=== PATIENT | female | born 1955 | race Caucasian/White ===

== ENCOUNTER → 2022-09-01 09:50 | Outpatient (BNVA) | payer MEDICARE, SELFPAY | PROVIDERS: Family Provider Family Medicine; PCP Family Medicine; Visit Provider Family Medicine | DX: E11.9 Type 2 diabetes mellitus without complications (principal); E03.9 Hypothyroidism, unspecified | CPT/HCPCS: 80053; 80061; 83036; 84443 ==

== ENCOUNTER 2022-09-16 14:31 | Outpatient (CLI) | payer MEDICARE, SELFPAY ==
--- NOTE | 2022-09-16 14:45 | US_ITS ---
WS: [id number] RIGHT UPPER QUADRANT ULTRASOUND HISTORY: elevated lfts COMPARISON: Gallbladder ultrasound 01/07/2016 Liver: 18.8 cm in length. Mildly enlarged liver. No mass or bile duct dilatation. Portal Vein: Normal hepatopetal flow with monophasic waveform. Gallbladder: Normally distended gallbladder with no stones or wall thickening. CBD: 0.3 cm Pancreas: Normal size pancreas. There is a hypoechoic area in the proximal body of the pancreas measu ring 6 x 9 x 6 mm. This was not present on the prior study. Otherwise negative. Right kidney: 11.8 cm in length. Normal size and echogenicity. No hydronephrosis or mass. Aorta and IVC: Unremarkable abdominal aorta and IVC. No ascites. US/US liver [id number] IMPRESSION: 1. Normal gallbladder. 2. Mild hepatic enlargement. 3. Cystic mass in the pancreatic body with measuring 6 x 9 x 6 mm. Differentia l includes cystic neoplasm, IPMN and pseudocyst. Recommend follow-up CT abdomen and pelvis with IV and oral contrast. Surveillance imaging will likely be nece ssary.
== END 2022-09-16 14:32 | disposition home or self-care (01) ==
PROVIDERS: PCP Family Medicine; Visit Provider Family Medicine
DX: R79.89 Other specified abnormal findings of blood chemistry (principal); R16.0 Hepatomegaly, not elsewhere classified
CPT/HCPCS: 76705; 83540; 86705; 86706; 86709; 86803; 87340

== ENCOUNTER 2022-10-11 11:53 | Outpatient (CLI) | payer MEDICARE, SELFPAY ==
--- NOTE | 2022-10-11 13:00 | CT_ITS ---
WS: [id number] CT ABDOMEN AND PELVIS WITH CONTRAST HISTORY: Pancreatic mass TECHNIQUE: Imaging performed of the abdomen and pelvis with IV contrast. Single phase imaging of the abdomen. Coronal and sagittal reformats are submitted. All CT scans at [facility] use at [address] one of these dose optimization techniques: automated exposure control; mA and/or kV adjustment per patient size (includes targeted exams where dose is matched to clinical indication); or iterative re construction. IV CONTRAST: Omnipaque 350; 100 mL IV. Oral contrast: Yes. DLP: 841.82 mGy.cm COMPARISON: 09/16/2022 and 01/07/2016 Lower thorax: Lung bases are clear. Heart is normal size. No hiatal hernia. Liver/biliary system: Normal size with no intrahepatic dilatation. Gallbladder: Normal. No gallstones or wall thickening. No pericholecystic fluid. Pancreas: Pancreas is normal size. Low-attenuation mass proximal body of the pancreas measures 9 mm. Hounsfield units are negative suggesting this is a fatty deposit. No additional pancreatic abnormalit y. Spleen: Normal size spleen. No mass or infarct. Granulomata. Adrenal glands: Normal. Right kidney: Normal. Left kidney: Normal. Aorta: Normal. Lymphadenopathy: None. Free fluid: None. GI tract: Normal stomach. No small bowel obstruction. Normal appendix. No colon obstruction. Abdominal wall: Fat containing umbilical hernia. Pelvis: No free fluid or adenopathy within the pelvis. Bones: L2 hemangioma. CT/CT abdomen pelvis w con* [id number] IMPRESSION: 1. Pancreatic body mass measuring 9 mm with negative Hounsfield units consiste nt with fat. Fat-containing lesions are typically benign. There is no enhancing solid component. This may be a focal lipomatosis/lipoma of the pancreas. Terat farhana also within the differential. Suggest [address] follow-up with contrast. 2. No ascites or adenopathy.
[2022-10-11] MEDS: iohexol 350 mg/mL 500 mL Btl (per mL) PO (13:37)
[2022-10-11] MEDS: iohexol 350 mg/mL 500 mL Btl (per mL) IV (13:38)
== END 2022-10-11 11:54 | disposition home or self-care (01) ==
PROVIDERS: PCP Family Medicine; Visit Provider Family Medicine
DX: K86.89 Other specified diseases of pancreas (principal); R79.89 Other specified abnormal findings of blood chemistry; E11.9 Type 2 diabetes mellitus without complications
CPT/HCPCS: 74177; Q9967

== ENCOUNTER → 2023-02-21 09:10 | Outpatient (BNVA) | payer MEDICARE, SELFPAY | PROVIDERS: PCP Family Medicine; Visit Provider Family Medicine | DX: K86.89 Other specified diseases of pancreas (principal); R79.89 Other specified abnormal findings of blood chemistry; E11.9 Type 2 diabetes mellitus without complications; E03.9 Hypothyroidism, unspecified | CPT/HCPCS: 80053; 80061; 83036; 83690 ==

== ENCOUNTER 2023-05-30 10:49 | Outpatient (CLI) | payer MEDICARE, SELFPAY ==
--- NOTE | 2023-05-30 11:00 | CT_ITS ---
WS: [id number] CT ABDOMEN WITH AND WITHOUT CONTRAST HISTORY: f/u on pancreatic mass Multiphase imaging through the abdomen with attention to the pancreas. Oral contrast has not been pro vided. Coronal and sagittal reformats are submitted. All CT scans at [facility] use at least one of these dose optimization techniques: automated exposure control; mA and/or kV adjustment per pa tient size (includes targeted exams where dose is matched to clinical indication); or iterative recon struction. IV CONTRAST: Omnipaque 350; 100 mL IV. Oral contrast: No DLP: 1329.27 mGy.cm COMPARISON: 10/11/2022 Lower thorax: Very tiny micronodules at the LEFT lung base. No increase in size. Heart is normal size . No hiatal hernia. Liver/biliary system: Mild hepatomegaly and hepatic steatosis. Normal portal vein. Gallbladder: Normal. No gallstones or wall thickening. No pericholecystic fluid. Pancreas: Pancreas is normal size. Reidentified is the 9 mm low-attenuation mass in the proximal body of the pancreas. Hounsfield units are negative suggesting this is fat. There is no enhancement. No c hange since 10/11/2022. This is most consistent with a benign lipoma. Spleen: Normal size spleen with granulomata. Adrenal glands: Normal. Right kidney: Normal size kidney. Small cortical defects in the lower pole. No mass or obstruction. Left kidney: Normal. Aorta: Normal. Lymphadenopathy: None. Free fluid: None. GI tract: As visualized within the abdomen normal. Abdominal wall: Fat containing umbilical hernia. Visualized osseous structures: L2 hemangioma. IMPRESSION: 1. Pancreatic body lipoma measures 9 mm. No change since 10/11/2022. By imaging this is a benign lesi on. No additional follow-up necessary. 2. Negative gallbladder. 3. No bile duct dilatation. 4. Mild hepatomegaly and hepatic steatosis.
[2023-05-30 11:16] LABS: Blood Urea Nitrogen 12 mg/dL (8-23); Glomerular Filtration Rate 83.5 mL/min (90-130)
[2023-05-30] MEDS: iohexol 350 mg/mL 500 mL Btl (per mL) IV (11:23)
== END 2023-05-30 10:50 | disposition home or self-care (01) ==
LOC: RAD 10:50
PROVIDERS: PCP Family Medicine; Visit Provider Family Medicine
DX: D17.5 Benign lipomatous neoplasm of intra-abdominal organs (principal); K76.0 Fatty (change of) liver, not elsewhere classified; R16.0 Hepatomegaly, not elsewhere classified
CPT/HCPCS: 74170; 82565; 84520; Q9967

== ENCOUNTER → 2024-08-06 16:47 | Outpatient (BNVA) | payer MEDICARE, SELFPAY | PROVIDERS: PCP Family Medicine; Visit Provider Family Medicine | DX: E11.9 Type 2 diabetes mellitus without complications (principal); E03.9 Hypothyroidism, unspecified; R79.89 Other specified abnormal findings of blood chemistry; K86.89 Other specified diseases of pancreas; I10 Essential (primary) hypertension | CPT/HCPCS: 80053; 83036; 84443 ==